=== PATIENT | male | born 1945 | race Caucasian/White ===

== ENCOUNTER 2023-04-02 10:17 | Inpatient (IN) ==
--- NOTE | 2023-04-02 10:45 | Emergency Department Note ---
Impression & Plan Anaplasmosis, Fever, Elevated troponin, Colon cancer, Nausea & vomiting, Hyponatremia, Thrombocytopenia ED Provider Note NAME: SARITHA BRUSH AGE: 77 SEX: M : 1945 ARRIVES VIA: Walk-In INFORMANT: [Patient][, ] ED PROVIDER(S): [Taqueria Graves MD] CHIEF COMPLAINT: Nausea, vomiting, headaches, outpatient referral MEDICAL DECISION MAKING: Patient presents with nausea vomiting headaches and outpatient referral from his primary oncologist due to concern for recent tick bites and associated symptoms. IV was established blood obtained along with blood cultures. The patient was ordered IV fluids and antiemetics. Patient also did have tickborne diseases ordered along with Anaplasma smear. Patient's blood work shows a leukopenia with a white count of 4.3 mild anemia hemoglobin 11.3. Thrombocytopenia noted at 50,000. No spontaneous bleeding noted or easy bruising. Hyponatremia 131. Patient does have prerenal azotemia with a BUN to creatinine ratio of 23. Troponin is slightly elevated at 24 but the patient denies any chest pains or shortness of breath. Urinalysis without obvious signs of infection. Procalcitonin is not elevated. Lyme is negative. Anaplasma smear concerning for Anaplasma. The patient already did receive empiric Rocephin and was ordered p.o. Doxy. Given the patient's associated symptoms I did speak with his primary oncologist Dr. Rand he is in agreement the patient may benefit from inpatient treatment. I did speak with Mabel Gimenez PA-C and the patient was admitted by Dr. Zohaib Will. Prior /Outside records reviewed: [none] Differential diagnosis: Infection, dehydration, metabolic abnormality, hypo/hyperglycemia, electrolyte disturbance, anemia, hypoxia, tickborne illness, among others were considered. Diagnostics, as interpreted by me: ECG: [none] Cardiac monitoring: An order was placed for continuous cardiac monitoring. The monitor shows a rate of [] with [] rhythm. [Patient was placed on pulse oximetry] Medical decision rules: [none] Imaging studies: See below HPI: Patient presents due to concern for weakness fatigue nausea vomiting and headaches. The patient has had symptoms for the last 2 days or so. The patient was noted to have tick bites over the abdomen as well as the right posterior aspect of the thigh. Patient did have these removed but did not receive any treatment. Patient denies any chest pains or shortness of breath. The patient did have some associated vomiting but no blood in the vomit. No falls or trauma. The patient does have increasing weakness and associated fatigue. Patient did receive his chemotherapy for the week. The patient states that he typically will wear a micheal pack with an infusion for the week he went to his follow-up appointment oncology clinic as he does follow with Dr. Rand with [facility] oncology. They removed of the pump this morning but noted that the patient had fever and was given Tylenol and Zofran and referred here for further evaluation and treatment. Patient does complain of mild generalized headache but no numbness tingling or focal weakness. No slurred speech or facial droop PAST MEDICAL HISTORY: [See Below] PAST SURGICAL HISTORY: [See Below] SOCIAL HISTORY: [See Below] HOME MEDICATIONS: [See Below] ALLERGIES: [See Below] VITALS: [See Below] PHYSICAL EXAMINATION: GENERAL: Wearing glasses, fatigable in appearance, nontoxic EYE EXAM: Normal conjunctiva. PERRL, no anisocoria and EOM's grossly intact w/o pain. Oropharynx: Dry mucous membranes NECK: Supple, no nuchal rigidity, no adenopathy, non-tender. No signs of meningismus. FROM of the neck with good chin to chest and neck extension. No stridor. LUNGS: Clear to auscultation. Normal chest wall mechanics. HEART: NSR, no MRG. ABDOMEN: Abdomen soft, 2 small eschars to the left lower abdome without obvious bull's-eye rash n, non-tender, no masses, no rebound or guarding. BACK: No CVA TTP. SKIN: No rashes and no bruising. UPPER EXTREMITIES: Upper extremities are grossly normal. LOWER EXTREMITIES: Grossly normal, no edema. Small eschar noted to the right posterior distal thigh without any erythema migrans NEURO EXAM: A&O x3, cranial nerves II-XII grossly intact, normal speech, moves all 4 extremities. Past Med/Surg History Medical History Aortic calcification Aortic stenosis Asthma Basal cell carcinoma (BCC) of right eyelid Bicuspid aortic valve Colonic polyp Coronary artery calcification Degeneration of cervical intervertebral disc Gastroesophageal reflux disease Glaucoma H/O echocardiogram Hemorrhoids Hepatic steatosis Herpes simplex viral infection Internal carotid artery stenosis Iron deficiency anemia Lateral epicondylitis of elbow Malignant neoplasm of rectum Anorectal exam under anesthesia with biopsy of rectal mass on 01/01/23 Neuropathy Osteoarthritis Pneumonia Prostatitis Rectal mass Rosacea Sepsis Spinal stenosis, cervical region Ulcerative colitis Surgical History H/O aortic valve replacement 12/08/22 History of arthroplasty of left knee History of cataract surgery Bilateral History of ear surgery Create eardrum opening right ear 2015 History of surgery Anal fistula surgery 07/22/2018 History of surgery anorectal exams under anesthesia History of surgery Placement of anal seton on 03/25/18 Hx of colonoscopy Hx of hemorrhoidectomy With banding 1997 S/P tonsillectomy Family History Mother , in her 70s Cancer Pt uncertain of type of cancer; Father , 85yo Sepsis Brother Brain cancer Polio Brother Diabetes Sister Qwjtnvc-Bhgxz-Usigc disease Family/Other Colorectal cancer Niece Son No problems noted. Son No problems noted. 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 [place]; How many Children do You have: 3 Feels Safe at Home: Yes Diet: regular caffeine: Yes (6-8 cups/day) during the past year weight has: remained stable Assistive Devices: Glasses Allergies Allergies Allergy/AdvReac Type Severity Reaction Status Date / Time adhesive tape AdvReac Rash Verified 04/02/23 13:41 celery AdvReac Rash Verified 04/02/23 13:41 triethanolamine AdvReac Difficulty Verified 04/02/23 13:41 Breathing Black Tea Allergy Intermediate Difficulty Uncoded 04/02/23 13:41 Breathing Home Meds Home Medications Medication Instructions Recorded Confirmed albuterol sulfate 90 mcg/actuation 2 puff inhalation QID PRN 09/16/22 04/02/23 aerosol inhaler (ProAir HFA) Shortness Of Breath atorvastatin 20 mg tablet 20 mg PO DAILY 09/16/22 04/02/23 fluticasone propionate 110 2 puff inhalation BID 09/16/22 04/02/23 mcg/actuation HFA aerosol inhaler glucosamine sulf dipot 1 cap PO DAILY ##0 09/16/22 04/02/23 chlr,msm,chond 550 mg-C 30 mg-deshawn 1 mg capsule (Glucosamine Chondroitin) mesalamine 1.2 gram tablet,delayed 3.6 g PO DAILY 09/16/22 04/02/23 release prednisone 5 mg tablet 5 mg PO DAILY 09/16/22 04/02/23 turmeric root extract 500 mg tablet 500 mg PO DAILY 09/16/22 04/02/23 L.acidophil-L.casei-B.bifid-B.longum-FOS 1 cap PO .3 days/week 02/16/23 04/02/23 2 billion cell-50 mg capsule (Probiotic Blend) acetaminophen 325 mg capsule 650 mg PO QID PRN Pain 02/16/23 04/02/23 (Tylenol) aspirin 81 mg capsule 81 mg PO DAILY 02/16/23 04/02/23 borage seed oil 1,000 mg capsule 1,000 mg PO .Twice/week 02/16/23 04/02/23 clotrimazole 1 % topical cream 1 applic topical BID PRN flare 02/16/23 04/02/23 (Antifungal (clotrimazole)) ergocalciferol (vitamin D2) 1,000 1,000 unit PO .3 times/week 02/16/23 04/02/23 unit capsule gabapentin 300 mg tablet 300 mg PO DAILY Pain 02/16/23 04/02/23 indomethacin 25 mg capsule 25 mg PO DAILY 02/16/23 04/02/23 latanoprost 0.005 % eye drops 1 drp ophthalmic (eye) HS 02/16/23 04/02/23 metronidazole 0.75 % topical cream 1 applic topical DAILY 02/16/23 04/02/23 multivitamin 1 tab PO .3 days/week 02/16/23 04/02/23 omeprazole 20 mg capsule,delayed 20 mg PO DAILY PRN Heartburn 02/16/23 04/02/23 release vitamin B12 500 mcg-folic acid 400 1 tab PO .once/week 02/16/23 04/02/23 mcg tablet ondansetron HCl 8 mg tablet 8 mg PO Q8H PRN Nausea 03/08/23 04/02/23 prochlorperazine maleate 10 mg 10 mg PO Q6H PRN Nausea 03/08/23 04/02/23 tablet (Compazine) phenazopyridine 95 mg tablet (Azo 95 mg PO TID PRN Pain 03/29/23 04/02/23 Urinary Pain Relief) Previous Rx's Medication Instructions Recorded tamsulosin 0.4 mg capsule 0.4 mg PO .COMPLEX #30 caps 03/29/23 Results & Data (ED) Vital Signs Vital Signs - 24 hr 04/02/23 10:32 04/02/23 10:50 04/02/23 12:14 Temperature 36.6 C Temperature Source Temporal Artery Scan Pulse Rate 83 73 Pulse Rate [Apical] 76 Pulse Rhythm Regular Regular Pulse Strength Normal Respiratory Rate 20 24 16 Respiratory Effort / Characteristics Non-Labored Spontaneous Non-Labored Respiratory Depth Normal Normal Respiratory Pattern Regular Blood Pressure 105/62 Blood Pressure [Right Arm] 114/50 L Blood Pressure Mean 76 Blood Pressure Mean [Right Arm] 71 Blood Pressure Position Sitting Pulse Oximetry 94 94 97 Oxygen Delivery Method Room Air Room Air Room Air Sepsis Recent Fever Within 48 Hours Yes Sepsis New/Unexplained Change in Mental Status No Sepsis Action Taken by Nursing No Action Required 04/02/23 12:14 04/02/23 14:37 Temperature 37.0 C Temperature Source Oral Pulse Rate Pulse Rate [Apical] 70 Pulse Rhythm Pulse Strength Respiratory Rate 20 Respiratory Effort / Characteristics Non-Labored Respiratory Depth Normal Respiratory Pattern Blood Pressure Blood Pressure [Right Arm] 112/63 Blood Pressure Mean Blood Pressure Mean [Right Arm] 79 Blood Pressure Position Pulse Oximetry 97 Oxygen Delivery Method Room Air Sepsis Recent Fever Within 48 Hours Sepsis New/Unexplained Change in Mental Status Sepsis Action Taken by [facility] Medications Current Medication List: was personally reviewed by me Laboratory Data Attestation: I reviewed the patient's lab results. 04/03/23 03:34 04/03/23 03:34 Lab Results 04/02/23 04/02/23 04/02/23 Range/Units 11:48 11:48 11:48 WBC 4.31 L (4.8-10.8) K/ul RBC 3.59 L (4.70-6.10) M/uL Hgb 11.3 L (14.0-18.0) g/dl Hct 32.9 L (42.0-52.0) % MCV 91.6 (80.0-100.0) fL MCH 31.5 (25.0-34.0) pg MCHC 34.3 (32.0-36.0) g/dL RDW Std Deviation 52.5 H (36.4-46.3) fL RDW Coeff of Lucy 16.5 H (11.5-14.5) % Plt Count 50 L (130-400) K/uL MPV 10.3 (9.4-12.4) fL Immature Gran % (Auto) 2.1 % Neut % (Auto) 88.4 % Lymph % (Auto) 2.6 % [place] % (Auto) 6.7 % Eos % (Auto) 0.0 % Baso % (Auto) 0.2 % Neut # (Auto) 3.81 (1.40-6.50) K/uL Lymph # (Auto) 0.11 L (1.2-3.4) K/uL Webster # (Auto) 0.29 (0.11-0.59) K/uL Eos # (Auto) 0.00 (0-0.50) K/uL Baso # (Auto) 0.01 (0-0.2) K/uL Immature Gran # (Auto) 0.09 (0.01-0.20) K/uL Platelet Estimate Decreased L (Normal) Peripher Smr Path Cons Sodium 131 L (136-145) mmol/L Potassium 3.8 (3.5-5.1) mmol/L Chloride 102 (98-107) mmol/L Carbon Dioxide 24 (21-32) mmol/L Anion Gap 5 (3-11) BUN 21 (6-23) mg/dl Creatinine 0.89 (0.6-1.4) mg/dl Est Cr Clr Drug Dosing 79.1 ml/min Est GFR ( Amer) 94.9 ml/min Est GFR (Non-Af Amer) 81.9 ml/min BUN/Creatinine Ratio 23.6 H (10-20) Glucose 115 H (70-99(Fasting)) mg/dl Lactate 0.9 (0.4-2.0) mmol/L Calcium 8.1 L (8.6-10.3) mg/dl Magnesium 1.8 (1.7-2.4) mg/dl Total Bilirubin 1.1 H (0.2-1.0) mg/dl Direct Bilirubin 0.2 (0-0.2) mg/dl AST 18 (13-39) U/L ALT 12 (7-52) U/L Alkaline Phosphatase 67 (34-104) U/L Troponin I High Sens 24.6 H (0-20) pg/ml Total Protein 5.8 L (6.0-8.3) gm/dl Albumin 3.5 (3.4-5.0) gm/dl Procalcitonin (0-0.5) ng/ml Urine Color Urine Appearance (Clear) Urine pH (4.5-7.5) Ur Specific [place] (1.000-1.030) Urine Protein (Negative) Urine Glucose (UA) (Negative) Urine Ketones (Negative) Urine Blood (Negative) Urine Nitrite (Negative) Urine Bilirubin (Negative) Urine Urobilinogen (Negative) Ur Leukocyte Esterase (Negative) Urine WBC (Auto) (0-5) /hpf Urine RBC (Auto) (0-4) /hpf U Hyaline Cast (Auto) (0-5) /lpf U Epithel Cells (Auto) (0-5) /lpf Urine Bacteria (Auto) (Negative) Anaplasma Smear Lyme Disease IgG Ab (Negative) Lyme Disease IgM Ab (Negative) 04/02/23 04/02/23 04/02/23 Range/Units 11:48 11:48 14:25 WBC (4.8-10.8) K/ul RBC (4.70-6.10) M/uL Hgb (14.0-18.0) g/dl Hct (42.0-52.0) % MCV (80.0-100.0) fL MCH (25.0-34.0) pg MCHC (32.0-36.0) g/dL RDW Std Deviation (36.4-46.3) fL RDW Coeff of Lucy (11.5-14.5) % Plt Count (130-400) K/uL MPV (9.4-12.4) fL Immature Gran % (Auto) % Neut % (Auto) % Lymph % (Auto) % [place] % (Auto) % Eos % (Auto) % Baso % (Auto) % Neut # (Auto) (1.40-6.50) K/uL Lymph # (Auto) (1.2-3.4) K/uL Webster # (Auto) (0.11-0.59) K/uL Eos # (Auto) (0-0.50) K/uL Baso # (Auto) (0-0.2) K/uL Immature Gran # (Auto) (0.01-0.20) K/uL Platelet Estimate (Normal) Peripher Smr Path Cons Sodium (136-145) mmol/L Potassium (3.5-5.1) mmol/L Chloride (98-107) mmol/L Carbon Dioxide (21-32) mmol/L Anion Gap (3-11) BUN (6-23) mg/dl Creatinine (0.6-1.4) mg/dl Est Cr Clr Drug Dosing ml/min Est GFR ( Amer) ml/min Est GFR (Non-Af Amer) ml/min BUN/Creatinine Ratio (10-20) Glucose (70-99(Fasting)) mg/dl Lactate (0.4-2.0) mmol/L Calcium (8.6-10.3) mg/dl Magnesium (1.7-2.4) mg/dl Total Bilirubin (0.2-1.0) mg/dl Direct Bilirubin (0-0.2) mg/dl AST (13-39) U/L ALT (7-52) U/L Alkaline Phosphatase (34-104) U/L Troponin I High Sens (0-20) pg/ml Total Protein (6.0-8.3) gm/dl Albumin (3.4-5.0) gm/dl Procalcitonin 0.34 (0-0.5) ng/ml Urine Color Dark Yellow Urine Appearance Clear (Clear) Urine pH 5.5 (4.5-7.5) Ur Specific [place] 1.030 (1.000-1.030) Urine Protein 1+ H (Negative) Urine Glucose (UA) Negative (Negative) Urine Ketones 1+ H (Negative) Urine Blood 1+ H (Negative) Urine Nitrite Negative (Negative) Urine Bilirubin Negative (Negative) Urine Urobilinogen Negative (Negative) Ur Leukocyte Esterase Negative (Negative) Urine WBC (Auto) 1-5 (0-5) /hpf Urine RBC (Auto) 10-30 H (0-4) /hpf U Hyaline Cast (Auto) 1-5 (0-5) /lpf U Epithel Cells (Auto) 10-20 H (0-5) /lpf Urine Bacteria (Auto) Negative (Negative) Anaplasma Smear Lyme Disease IgG Ab Negative (Negative) Lyme Disease IgM Ab Negative (Negative) 04/02/23 04/02/23 Range/Units 15:00 15:00 WBC (4.8-10.8) K/ul RBC (4.70-6.10) M/uL Hgb (14.0-18.0) g/dl Hct (42.0-52.0) % MCV (80.0-100.0) fL MCH (25.0-34.0) pg MCHC (32.0-36.0) g/dL RDW Std Deviation (36.4-46.3) fL RDW Coeff of Lucy (11.5-14.5) % Plt Count (130-400) K/uL MPV (9.4-12.4) fL Immature Gran % (Auto) % Neut % (Auto) % Lymph % (Auto) % [place] % (Auto) % Eos % (Auto) % Baso % (Auto) % Neut # (Auto) (1.40-6.50) K/uL Lymph # (Auto) (1.2-3.4) K/uL [place] # (Auto) (0.11-0.59) K/uL Eos # (Auto) (0-0.50) K/uL Baso # (Auto) (0-0.2) K/uL Immature Gran # (Auto) (0.01-0.20) K/uL Platelet Estimate (Normal) Peripher Smr Path Cons Cancelled Sodium (136-145) mmol/L Potassium (3.5-5.1) mmol/L Chloride (98-107) mmol/L Carbon Dioxide (21-32) mmol/L Anion Gap (3-11) BUN (6-23) mg/dl Creatinine (0.6-1.4) mg/dl Est Cr Clr Drug Dosing ml/min Est GFR ( Amer) ml/min Est GFR (Non-Af Amer) ml/min BUN/Creatinine Ratio (10-20) Glucose (70-99(Fasting)) mg/dl Lactate (0.4-2.0) mmol/L Calcium (8.6-10.3) mg/dl Magnesium (1.7-2.4) mg/dl Total Bilirubin (0.2-1.0) mg/dl Direct Bilirubin (0-0.2) mg/dl AST (13-39) U/L ALT (7-52) U/L Alkaline Phosphatase (34-104) U/L Troponin I High Sens (0-20) pg/ml Total Protein (6.0-8.3) gm/dl Albumin (3.4-5.0) gm/dl Procalcitonin (0-0.5) ng/ml Urine Color Urine Appearance (Clear) Urine pH (4.5-7.5) Ur Specific [place] (1.000-1.030) Urine Protein (Negative) Urine Glucose (UA) (Negative) Urine Ketones (Negative) Urine Blood (Negative) Urine Nitrite (Negative) Urine Bilirubin (Negative) Urine Urobilinogen (Negative) Ur Leukocyte Esterase (Negative) Urine WBC (Auto) (0-5) /hpf Urine RBC (Auto) (0-4) /hpf U Hyaline Cast (Auto) (0-5) /lpf U Epithel Cells (Auto) (0-5) /lpf Urine Bacteria (Auto) (Negative) Anaplasma Smear See Comment A Lyme Disease IgG Ab (Negative) Lyme Disease IgM Ab (Negative) Administered Medications Albuterol (Albuterol 0.083% Nebu Soln 3 Ml Vial) 2.5 mg NEB Q6R PRN; Protocol PRN Reason: Shortness Of Breath Or Wheezing Stop: 05/02/23 19:12 Last Admin: 04/02/23 23:05 Dose: 2.5 mg Documented By: MAGDA Aspirin (Aspirin 81 Mg Ectab) 81 mg PO DAILY [facility] Stop: 05/03/23 08:59 Last Admin: 04/03/23 08:14 Dose: 81 mg Documented By: JULIANNA Atorvastatin Calcium (Atorvastatin 20 Mg Tab) 20 mg PO DAILY [facility] Stop: 05/03/23 08:59 Last Admin: 04/03/23 08:14 Dose: 20 mg Documented By: JULIANNA Ceftriaxone Sodium 2,000 mg/ (Dextrose) 70 mls @ 100 mls/hr IV Q24H [facility]; Protocol Stop: 04/04/23 19:29 Last Infusion: 04/02/23 22:42 Dose: 0 mls/hr Documented By: Admin: 04/02/23 21:28 Dose: 100 mls/hr Documented By: MAGDA Doxycycline Hyclate 100 mg/ (Dextrose) 110 mls @ 50 mls/hr IV Q12H GURU Stop: 04/04/23 19:29 Last Admin: 04/03/23 07:40 Dose: 50 mls/hr Documented By: Infusion: 04/03/23 02:01 Dose: 0 mls/hr Documented By: Admin: 04/02/23 23:07 Dose: 50 mls/hr Documented By: MAGDA Sodium Chloride (Nss 1000ml) 1,000 mls @ 80 mls/hr IV .[id number] [facility] Stop: 04/03/23 20:12 Last Admin: 04/02/23 21:28 Dose: 80 mls/hr Documented By: MAGDA Latanoprost (Latanoprost 0.005% Op Soln 2.5 Ml Btl) 1 drops OP HS GURU Stop: 05/02/23 20:59 Last Admin: 04/02/23 21:29 Dose: 1 drops Documented By: MAGDA Pantoprazole Sodium (Pantoprazole 40 Mg Tab) 40 mg PO DAILY GURU Stop: 05/03/23 08:59 Last Admin: 04/03/23 08:14 Dose: 40 mg Documented By: JULIANNA Prednisone (Prednisone 5 Mg Tab) 5 mg PO DAILY GURU Stop: 05/03/23 08:59 Last Admin: 04/03/23 08:14 Dose: 5 mg Documented By: JULIANNA Tamsulosin HCl (Tamsulosin Hcl 0.4 Mg Cap) 0.4 mg PO DAILY@1800 [facility] Stop: 05/02/23 19:29 Last Admin: 04/02/23 21:28 Dose: 0.4 mg Documented By: MAGDA Discontinued Medications Doxycycline Hyclate (Doxycycline Hyclate 100 Mg Cap) 100 mg PO NOW STA Stop: 04/02/23 14:24 Last Admin: 04/02/23 14:39 Dose: 100 mg Documented By: MALACHI Cefepime HCl (Maxipime) 2,000 mg in 20 mls @ 5 mls/min IV NOW STA; Protocol Stop: 04/02/23 11:07 Last Admin: 04/02/23 12:12 Dose: 5 mls/min Documented By: MALACHI Sodium Chloride (Nss 1000ml) 1,000 mls @ 999 mls/hr IV .Q1H1M GURU Stop: 04/02/23 13:15 Last Infusion: 04/02/23 13:49 Dose: 0 mls/hr Documented By: Admin: 04/02/23 13:05 Dose: 999 mls/hr Documented By: Infusion: 04/02/23 13:05 Dose: 0 mls/hr Documented By: Admin: 04/02/23 12:13 Dose: 999 mls/hr Documented By: MALACHI Calcium Gluconate () 1,000 mg in 60 mls @ 240 mls/hr IV NOW STA Stop: 04/02/23 13:31 Last Infusion: 04/02/23 14:09 Dose: 0 mls/hr Documented By: Admin: 04/02/23 13:44 Dose: 240 mls/hr Documented By: FREDY Ioversol (Optiray 320 500ml) 120 ml IV ONCE ONE Stop: 04/02/23 15:57 Last Admin: 04/02/23 15:57 Dose: 120 ml Documented By: KATHLEEN Ondansetron HCl (Ondansetron Inj 2 Mg/Ml 2 Ml Vial) Confirm Administered Dose 4 mg .ROUTE .STK-MED ONE Stop: 04/02/23 17:30 Last Admin: 04/02/23 17:31 Dose: 4 mg Documented By: TW Discharge Plan Visit Data Chief Complaint: Bite Stated Complaint: TICK BITE ED Provider: Taqueria Graves Discharge Problem: Anaplasmosis, Fever, Elevated troponin, Colon cancer, Nausea & vomiting, H yponatremia, Thrombocytopenia Patient Disposition: Admitted As Inpatient Discharge Instructions Interventions: ED Discharge Assessment Last Done: 04/02/23 19:13
[2023-04-02] MEDS ORDERED: CEFEPIME 2,000 MG/20 ML VIAL IV STA (11:04)
--- NOTE | 2023-04-02 11:52 | XRay Report ---
XR chest 1V portable HISTORY: Sepsis COMPARISON: Outside hospital chest CT 02/17/2023. FINDINGS: No pneumothorax. No pleural effusions. A right jugular central venous catheter terminates i n the SVC. The cardiac silhouette is top normal in size. There are bibasilar linear densities. This f avors subsegmental atelectasis or scarring. Calcified granuloma within the left upper lobe. No eviden ce for pulmonary edema. IMPRESSION: Bibasilar linear densities are nonspecific but favor subsegmental atelectasis or scarring. Otherwise, no acute process within the chest. ACT 112: Negative or not required by law. Electronically signed by: Ascencion Cordova M.D. 04/02/2023 11:51 AM
[2023-04-02] MEDS: SODIUM CHLORIDE 0.9% 1000ML 1,000 ML IV SCH ×3 (12:13→21:28)
[2023-04-02 12:29] LABS: Albumin Level 3.5 gm/dl (3.4-5.0); BUN Creatinine Ratio 23.6 (10-20); Bilirubin Direct 0.2 mg/dl (0-0.2); Bilirubin,Total 1.1 mg/dl (0.2-1.0); Calcium 8.1 mg/dl (8.6-10.3); Creatinine Clr Calc Pharmacy 79.1 ml/min; Est GFR (African American) 94.9 ml/min; Est GFR (Non-African American) 81.9 ml/min; Magnesium 1.8 mg/dl (1.7-2.4); Potassium 3.8 mmol/L (3.5-5.1); Total Protein 5.8 gm/dl (6.0-8.3)
[2023-04-02 12:34] LABS: Troponin I High Sensitivity 24.6 pg/ml (0-20)
[2023-04-02 12:45] LABS: Basophils # (auto) 0.01 K/uL (0-0.2); Basophils % (auto) 0.2 %; Hematocrit (blood only) 32.9 % (42.0-52.0); Hemoglobin 11.3 g/dl (14.0-18.0); Immature Granulocytes # (auto) 0.09 K/uL (0.01-0.20); Immature Granulocytes % (auto) 2.1 %; Lymphocytes # (auto) 0.11 K/uL (1.2-3.4); Lymphocytes % (auto) 2.6 %; Mean Corpuscular Hemoglobin 31.5 pg (25.0-34.0); Mean Corpuscular Hgb Conc 34.3 g/dL (32.0-36.0); Mean Corpuscular Volume 91.6 fL (80.0-100.0); Mean Platelet Volume 10.3 fL (9.4-12.4); Monocytes # (auto) 0.29 K/uL (0.11-0.59); Monocytes % (auto) 6.7 %; Neutrophils # (auto) 3.81 K/uL (1.40-6.50); Neutrophils % (auto) 88.4 %; Platelet Count 50 K/uL (130-400); Platelet Estimate Decreased (Normal); RDW Coefficient of Variation 16.5 % (11.5-14.5); RDW Standard Deviation 52.5 fL (36.4-46.3); Red Blood Count 3.59 M/uL (4.70-6.10); White Blood Count 4.31 K/ul (4.8-10.8)
[2023-04-02 13:13] LABS: Lyme Ab IgG w/WB Rflx Negative (Negative); Lyme Ab IgM w/WB Rflx Negative (Negative)
[2023-04-02] MEDS ORDERED: CALCIUM GLUCONATE 1,000 MG/60 ML BAG IV STA (13:17)
[2023-04-02] MEDS ORDERED: DOXYCYCLINE HYCLATE 100 MG CAP PO STA (14:23)
--- NOTE | 2023-04-02 14:57 | History & Physical Report ---
Date of Service April 02, 2023 Assessment & Plan (1) Fever: (2) Anaplasmosis: Plan: Thrombocytopenia Patient is 77-year-old male with PMH rectal adenocarcinoma, bladder tumor, asthma, ulcerative colitis, iron deficiency anemia, presented to ER with complaint of fever x 1 day up to 103F. Tick bite 1 week ago In ER vitals stable. WBC: 4.3, PLT: 50. 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 (3) Elevated troponin: Plan: Initial high-sensitivity troponin: 24.6. EKG: Sinus rhythm rate 78, PVCs, LBBB. Patient with history of chronic LBBB per outpatient prior EKGs Possible demand ischemia Trend troponin Echo (4) Colon cancer: Plan: Currently receiving chemo Following with oncology, Dr. Rand (5) Asthma: Plan: On chronic prednisone, continue prednisone Continue home medicines Albuterol as needed (6) Ulcerative colitis: Plan: Continue mesalamine (7) Iron deficiency anemia: Plan: Last received IV iron 03/19/2023 Hgb: 11. Baseline~12 Monitor H&H DVT Prophylaxis SCDs DNR/DNI as per discussion with pt and pt's signficant other Follows with Dr Valdez for routine care Pt was seen and care coordinated with Dr Alcaraz. See addendum I spent a total of 83 minutes reviewing notes, outpatient records, labs, medication, coordinating, documenting and providing care for this patient excluding time spent in the performance of separately billed services. History of Present Illness Chief Complaint: Fever Primary Care Provider: Baldo Valdez MD Patient is 77-year-old male with PMH rectal adenocarcinoma, bladder tumor, asthma, ulcerative colitis, iron deficiency anemia, presented to ER with complaint of fever. History obtained from patient, patient's and chart review. States had fever 101.5F last night, took Tylenol and went to bed. This morning had Fever 103F. Currently on chemotherapy. Nauseated and vomited today after drinking Coke in ER. Patient states thinks abdomen is more distended and has diffuse abdominal aching. Reports 1 week ago had 2 ticks to abdomen and one tick to right popliteal fossa. removed with tweezers. states ticks on abdomen were engorged. Patient complains of generalized headache and fatigue and generalized weakness for the past day as well. Patient states has chronic dysuria and uses OTC Azo. Last received IV iron 02/23/2023, 03/19/2023. Denies diarrhea, constipation, dizziness, syncope, vision changes, neck pain, CP, SOB, palpitations, cough, sore throat, otalgia, rhinorrhea, extremity edema, rashes, hematuria, urinary frequency. Allergies Allergy/AdvReac Type Severity Reaction Status Date / Time adhesive tape AdvReac Rash Verified 04/02/23 13:41 celery AdvReac Rash Verified 04/02/23 13:41 triethanolamine AdvReac Difficulty Verified 04/02/23 13:41 Breathing Black Tea Allergy Intermediate Difficulty Uncoded 04/02/23 13:41 Breathing Home Medications Medication Instructions Recorded Confirmed Type albuterol sulfate 90 mcg/actuation 2 puff inhalation QID PRN 09/16/22 04/02/23 History aerosol inhaler (ProAir HFA) Shortness Of Breath atorvastatin 20 mg tablet 20 mg PO DAILY 09/16/22 04/02/23 History fluticasone propionate 110 2 puff inhalation BID 09/16/22 04/02/23 History mcg/actuation HFA aerosol inhaler glucosamine sulf dipot 1 cap PO DAILY ##0 09/16/22 04/02/23 History chlr,msm,chond 550 mg-C 30 mg-deshawn 1 mg capsule (Glucosamine Chondroitin) mesalamine 1.2 gram tablet,delayed 3.6 g PO DAILY 09/16/22 04/02/23 History release prednisone 5 mg tablet 5 mg PO DAILY 09/16/22 04/02/23 History turmeric root extract 500 mg tablet 500 mg PO DAILY 09/16/22 04/02/23 History L.acidophil-L.casei-B.bifid-B.longum-FOS 1 cap PO .3 days/week 02/16/23 04/02/23 History 2 billion cell-50 mg capsule (Probiotic Blend) acetaminophen 325 mg capsule 650 mg PO QID PRN Pain 02/16/23 04/02/23 History (Tylenol) aspirin 81 mg capsule 81 mg PO DAILY 02/16/23 04/02/23 History borage seed oil 1,000 mg capsule 1,000 mg PO .Twice/week 02/16/23 04/02/23 History clotrimazole 1 % topical cream 1 applic topical BID PRN flare 02/16/23 04/02/23 History (Antifungal (clotrimazole)) ergocalciferol (vitamin D2) 1,000 1,000 unit PO .3 times/week 02/16/23 04/02/23 History unit capsule gabapentin 300 mg tablet 300 mg PO DAILY Pain 02/16/23 04/02/23 History indomethacin 25 mg capsule 25 mg PO DAILY 02/16/23 04/02/23 History latanoprost 0.005 % eye drops 1 drp ophthalmic (eye) HS 02/16/23 04/02/23 History metronidazole 0.75 % topical cream 1 applic topical DAILY 02/16/23 04/02/23 History multivitamin 1 tab PO .3 days/week 02/16/23 04/02/23 History omeprazole 20 mg capsule,delayed 20 mg PO DAILY PRN Heartburn 02/16/23 04/02/23 History release vitamin B12 500 mcg-folic acid 400 1 tab PO .once/week 02/16/23 04/02/23 History mcg tablet ondansetron HCl 8 mg tablet 8 mg PO Q8H PRN Nausea 03/08/23 04/02/23 History prochlorperazine maleate 10 mg 10 mg PO Q6H PRN Nausea 03/08/23 04/02/23 History tablet (Compazine) phenazopyridine 95 mg tablet (Azo 95 mg PO TID PRN Pain 03/29/23 04/02/23 History Urinary Pain Relief) tamsulosin 0.4 mg capsule 0.4 mg PO .COMPLEX #30 caps 03/29/23 04/02/23 Rx Past Med/Surg History Medical History (Updated 04/02/23 @ 20:24 by Taina Gimenez PA-C) Aortic calcification Aortic stenosis Asthma Basal cell carcinoma (BCC) of right eyelid Bicuspid aortic valve Colonic polyp Coronary artery calcification Degeneration of cervical intervertebral disc Gastroesophageal reflux disease Glaucoma H/O echocardiogram Hemorrhoids Hepatic steatosis Herpes simplex viral infection Internal carotid artery stenosis Iron deficiency anemia Lateral epicondylitis of elbow Malignant neoplasm of rectum Anorectal exam under anesthesia with biopsy of rectal mass on 01/01/23 Neuropathy Osteoarthritis Pneumonia Prostatitis Rectal mass Rosacea Sepsis Spinal stenosis, cervical region Ulcerative colitis Surgical History H/O aortic valve replacement 12/08/22 History of arthroplasty of left knee History of cataract surgery Bilateral History of ear surgery Create eardrum opening right ear 2015 History of surgery Anal fistula surgery 07/22/2018 History of surgery anorectal exams under anesthesia History of surgery Placement of anal seton on 03/25/18 Hx of colonoscopy Hx of hemorrhoidectomy With banding 1997 S/P tonsillectomy Family History Mother , in her 70s Cancer Pt uncertain of type of cancer; Father , 85yo Sepsis Brother Brain cancer Polio Brother Diabetes Sister Xlilofc-Hqjsb-Lqxek disease Family/Other Colorectal cancer Niece Son No problems noted. Son No problems noted. 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 [place]; How many Children do You have: 3 Feels Safe at Home: Yes Diet: regular caffeine: Yes (6-8 cups/day) during the past year weight has: remained stable Assistive Devices: Glasses Review of Systems Review of Systems: All systems reviewed & are unremarkable except as noted in HPI & below Physical Exam Physical Exam: General:+ill appearing, obese elderly male Head: normocephalic, atraumatic Eyes: PERRL, EOM's intact, conjunctiva non-injected, anicteric ENT: normal inspection external ears, nose, mucous membranes dry Neck: supple, trachea midline Lungs: +tachypnea, sats: 96% on RA, clear, no wheezing/rhonchi/rales CV: RRR, no murmur, no pretibial edema Abd: protuberant, normal BS, soft, diffuse tenderness to palpation Ext: no cyanosis, no calf tenderness Neuro: A&O x 3, no focal deficits noted, normal affect Skin: warm, dry, +scabbed area to right popliteal fossa without surrounding erythema. lower abdomen with ulcerated area. no discharge. no bulls eye rashes noted Results & Data Results & Data Vital Signs (Past 12 Hours) Vital Signs Temp Pulse Pulse Resp BP BP Pulse Ox 04/02/23 14:37 37.0 C 04/02/23 12:14 70 20 112/63 97 04/02/23 12:14 73 16 97 04/02/23 10:50 76 24 114/50 L 94 04/02/23 10:32 36.6 C 83 20 105/62 94 O2 Del Method 04/02/23 14:37 04/02/23 12:14 Room Air 04/02/23 12:14 Room Air 04/02/23 10:50 Room Air 04/02/23 10:32 Room Air Laboratory Results Short CBC 04/02/23 Range/Units 11:48 WBC 4.31 L (4.8-10.8) K/ul Hgb 11.3 L (14.0-18.0) g/dl Hct 32.9 L (42.0-52.0) % Plt Count 50 L (130-400) K/uL BMP 04/02/23 11:48 Sodium 131 L Potassium 3.8 Chloride 102 Carbon Dioxide 24 BUN 21 Creatinine 0.89 Glucose 115 H Calcium 8.1 L Liver Function 04/02/23 Range/Units 11:48 Total Bilirubin 1.1 H (0.2-1.0) mg/dl Direct Bilirubin 0.2 (0-0.2) mg/dl AST 18 (13-39) U/L ALT 12 (7-52) U/L Alkaline Phosphatase 67 (34-104) U/L Albumin 3.5 (3.4-5.0) gm/dl Urine 04/02/23 Range/Units 14:25 Urine Color Dark Yellow Urine Appearance Clear (Clear) Urine pH 5.5 (4.5-7.5) Ur Specific [place] 1.030 (1.000-1.030) Urine Protein 1+ H (Negative) Urine Glucose (UA) Negative (Negative) Diagnostic Findings Chest X-Ray 04/02/23 11:04 XR chest 1V portable HISTORY: Sepsis COMPARISON: Outside hospital chest CT 02/17/2023. FINDINGS: No pneumothorax. No pleural effusions. A right jugular central venous catheter terminates in the SVC. The cardiac silhouette is top normal in size. There are bibasilar linear densities. This favors subsegmental atelectasis or scarring. Calcified granuloma within the left upper lobe. No evidence for pulmonary edema. IMPRESSION: Bibasilar linear densities are nonspecific but favor subsegmental atelectasis or scarring. Otherwise, no acute process within the chest. ACT 112: Negative or not required by law. Electronically signed by: Ascencion Cordova M.D. 04/02/2023 11:51 AM Abdomen/Pelvis CT 04/02/23 15:48 CT OF THE ABDOMEN AND PELVIS WITH CONTRAST CLINICAL HISTORY: Abdominal pain. Rectal adenocarcinoma. COMPARISON STUDY: CT of the chest, abdomen and pelvis February 17, 2023. TECHNIQUE: Following IV administration of 120 mL of Optiray, axial images of the abdomen and pelvis were obtained from the lung bases to the proximal femurs. Images were reviewed in the axial, sagittal, and coronal planes. IV contrast was administered without complication. Automated exposure control was utilized for the study. A dose lowering technique was utilized adhering to the principles of ALARA. FINDINGS: Please note that the chest CT will be reported separately. No pneumatosis, free air or portal venous gas is present. There are a few in determinate small hypodense hepatic lesions which measure up to 1.1 cm. There is no biliary or pancreatic ductal dilatation. Spleen, adrenal glands and pancreas are unremarkable. A few suspected renal cysts are present. There is no hydronephrosis. No abdominal or pelvic lymphadenopathy is present. The caliber and wall thickness of small and large bowel are normal. There is no evidence for a bowel obstruction. The appendix is not visualized. Note is made of a large multiloculated cystic mass along the left aspect of the rectum and anus. The largest component measures 11.1 x 8.1 x 9.3 cm. The wall is mildly thickened and contains several calcifications. Complex perianal component is present. The appearance is similar to CT of February 17, 2023. There is mild bladder wall thickening with adjacent stranding. Prostate is enlarged, measuring 6.2 cm in transverse dimension. No suspicious osseous lesions are present. IMPRESSION: 1. Bladder wall thickening with adjacent stranding. This could be correlated with urinalysis to exclude cystitis. Enlarged prostate. 2. No bowel obstruction. 3. No change in a multiloculated cystic mass along the left aspect of the rectum and anus with complex perianal component, since CT of February 17, 2023. This likely reflects the known primary tumor. 4. A few small indeterminate hypodense hepatic lesions. ACT 112: Negative or not required by law. Electronically signed by: Nam Mckeon M.D. 04/02/2023 4:27 PM Chest CTA 04/02/23 15:48 CT angio chest PE protocol CT DOSE: 1915.66 mGy.cm HISTORY: 77 years-old Male with PE. Acute chest and abdominal pain TECHNIQUE: Multiple CTA images of the chest were obtained after the intravenous administration of 120 ml Optiray. Coronal and sagittal MIPS were obtained from the axial data set and were submitted for review. All measurements were obtained according to NASCET criteria. A dose lowering technique was utilized adhering to the principles of ALARA. COMPARISON: CT abdomen and pelvis of same day, CTA 02/17/2023 (images only). FINDINGS: CTA: Heart is normal in size without pericardial effusion. Moderate to extensive coronary artery calcifications. Descending aortic endograft. No thoracic aortic aneurysm or dissection. Right IJ Ngmeth-p-Cgds catheter distal tip terminates within the right atrium. No pulmonary emboli identified. CT CHEST: No thyroid nodule. Mildly enlarged right hilar lymph nodes measure up to 12 mm. Subcarinal lymph nodes measure up to 9 mm. Trace pleural effusions. No pneumothorax or overt pulmonary edema. Bronchial wall thickening with mild mucous plugging and subsegmental bibasilar atelectasis. Mild pulmonary emphysema. 6 mm groundglass nodule of the left upper lobe on image 146 is unchanged. Mild biapical pleural-parenchymal scarring. 7 mm fissural nodule left mid lung on image 111 is suggestive of a benign lymph node. Lobular septal thickening. No acute process of the imaged upper abdomen. Unremarkable soft tissues. No acute fracture. IMPRESSION: 1. No pulmonary emboli identified. 2. Trace pleural effusions with mild bibasilar atelectasis. 3. Pulmonary emphysema with bronchitis and mild mucous plugging. 4. Intralobular septal thickening may represent a component of pulmonary edema. 5. Unchanged 6 mm irregular groundglass nodule of the lateral upper lobe with likely benign 7 mm fissural nodule within the left midlung. Please refer to below summary of Fleischner criteria recommendations for follow- up of incidental CT nodules (Stephani Barker, Guidelines for management of small pulmonary nodules detected on CT scans: A statement from the Fleischner Society, Radiology 237: [phone].) SOLID NODULES Solitary nodule size: <6 mm * Low risk patients: no follow-up needed * high risk patients: optional CT at 12 months Solitary nodule size: 6-8 mm * Low risk patients: follow-up at 6-12 months, then consider further follow-up at 18-24 months * high risk patients: initial follow-up CT at 6-12 months and then at 18-24 months if no change Solitary nodule size: >8 mm * either low or high risk patients - consider follow-up CT at 3 months, and/or CT-PET, and/or biopsy Multiple nodules size: <6 mm * Low risk patients: no routine follow-up * high risk patients: optional CT at 12 months Multiple nodules size: 6-8 mm * Low risk patients: follow-up at 3-6 months, then consider further follow-up at 18-24 months * high risk patients: follow-up at 3-6 months, then at 18-24 months if no change Multiple nodules size: >8 mm * Low risk patients: follow-up at 3-6 months, then consider further follow-up at 18-24 months * high risk patients: follow-up at 3-6 months, then at 18-24 months if no change Note: newly detected indeterminate nodule in persons 35 years of age or older. * Low risk patients: minimal or absent history of smoking and/or other known risk factors * high risk patients: history of smoking or of other known risk factors (e.g. first degree relative with lung cancer, or exposure to asbestos, radon, uranium) * if a nodule up to 8 mm is partly solid or is ground glass further follow-up is required after 24 months to exclude possible slow growing adenocarcinoma (ASLVATORE) SUBSOLID NODULES Solitary pure ground-glass nodule * nodule size <6 mm - no CT follow-up required * nodule size >=6 mm - follow-up CT at 6-12 months, then every 2 years until 5 years Solitary part-solid nodule * nodule size <6 mm - no CT follow-up required * nodule size >=6 mm - follow-up CT at 3-6 months. If unchanged, and solid component remains <6 mm, then annual follow-up for 5 years Multiple subsolid nodules * nodule size <6 mm - follow-up CT at 3-6 months, consider further follow-up at 2 and 4 years if stable * nodule size >=6 mm - follow-up CT at 3-6 months, subsequent management based on the most suspicious nodule(s) The above report was generated using voice recognition software. It may contain grammatical, syntax or spelling errors. ACT 112: Negative or not required by law. The above report was generated using voice recognition software. It may contain grammatical, syntax or spelling errors. Electronically signed by: Sven Reyes M.D. 04/02/2023 4:14 PM Supervising Physician Co-Signing Physician Notes Patient seen and examined independently. Discussed with the provider. 77-year-old male with history of rectal cancer, bladder tumor presents to the ED with generalized weakness and fever. He was sent to ED from oncology office for concern of anaplasmosis given thrombocytopenia. Peripheral smear consistent with possible anaplasmosis. Currently started on ceftriaxone and Doxy. Can switch to doxycycline alone if patient continues to well; plan for 10 days of treatment.
[2023-04-02 15:04] LABS: Appearance Urine Clear (Clear); Bacteria Urine Automated Negative (Negative); Bilirubin Urine Negative (Negative); Blood Urine 1+ (Negative); Color Urine Dark Yellow; Glucose Urine UA Negative (Negative); Ketones Urine 1+ (Negative); Leukocyte Esterase Urine Negative (Negative); Nitrite Urine Negative (Negative); Protein Urine 1+ (Negative); Urobilinogen Urine Negative (Negative); pH Urine 5.5 (4.5-7.5)
--- NOTE | 2023-04-02 15:35 | Electrocardiogram Report ---
Test Reason : Blood Pressure : / mmHG Vent. Rate : 078 BPM Atrial Rate : 078 BPM P-R Int : 202 ms QRS Dur : 168 ms QT Int : 448 ms P-R-T Axes : 019 -36 074 degrees QTc Int : 510 ms Sinus rhythm with frequent , and consecutive Premature ventricular complexes Left axis deviation Left bundle branch block Abnormal ECG No previous ECGs available Confirmed by Pal Jolly ([id number]) on 04/02/2023 3:35:39 PM Referred By: Confirmed By:Ap Jolly
[2023-04-02] MEDS ORDERED: OPTIRAY 320 500ml IV ONE (15:56)
--- NOTE | 2023-04-02 16:15 | CT Scan Report ---
CT angio chest PE protocol CT DOSE: 1915.66 mGy.cm HISTORY: 77 years-old Male with PE. Acute chest and abdominal pain TECHNIQUE: Multiple CTA images of the chest were obtained after the intravenous administration of 120 ml Optiray. Coronal and sagittal MIPS were obtained from the axial data set and were submitted for review. All measurements were obtained according to NASCET criteria. A dose lowering technique was u tilized adhering to the principles of ALARA. COMPARISON: CT abdomen and pelvis of same day, CTA 02/17/2023 (images only). FINDINGS: CTA: Heart is normal in size without pericardial effusion. Moderate to extensive coronary artery calcifica tions. Descending aortic endograft. No thoracic aortic aneurysm or dissection. Right IJ Xfwssf-t-Clns catheter distal tip terminates within the right atrium. No pulmonary emboli identified. CT CHEST: No thyroid nodule. Mildly enlarged right hilar lymph nodes measure up to 12 mm. Subcarinal lymph node s measure up to 9 mm. Trace pleural effusions. No pneumothorax or overt pulmonary edema. Bronchial wa ll thickening with mild mucous plugging and subsegmental bibasilar atelectasis. Mild pulmonary emphys doron. 6 mm groundglass nodule of the left upper lobe on image 146 is unchanged. Mild biapical pleural- parenchymal scarring. 7 mm fissural nodule left mid lung on image 111 is suggestive of a benign lymph node. Lobular septal thickening. No acute process of the imaged upper abdomen. Unremarkable soft tissues. No acute fracture. IMPRESSION: 1. No pulmonary emboli identified. 2. Trace pleural effusions with mild bibasilar atelectasis. 3. Pulmonary emphysema with bronchitis and mild mucous plugging. 4. Intralobular septal thickening may represent a component of pulmonary edema. 5. Unchanged 6 mm irregular groundglass nodule of the lateral upper lobe with likely benign 7 mm fiss ural nodule within the left midlung. Please refer to below summary of Fleischner criteria recommendations for follow-up of incidental CT n odules (Stephani Barker, Guidelines for management of small pulmonary nodules detected on CT scans: A sta tement from the Fleischner Society, Radiology 237: [phone].) SOLID NODULES Solitary nodule size: <6 mm * Low risk patients: no follow-up needed * high risk patients: optional CT at 12 months Solitary nodule size: 6-8 mm * Low risk patients: follow-up at 6-12 months, then consider further follow-up at 18-24 months * high risk patients: initial follow-up CT at 6-12 months and then at 18-24 months if no change Solitary nodule size: >8 mm * either low or high risk patients - consider follow-up CT at 3 months, and/or CT-PET, and/or biopsy Multiple nodules size: <6 mm * Low risk patients: no routine follow-up * high risk patients: optional CT at 12 months Multiple nodules size: 6-8 mm * Low risk patients: follow-up at 3-6 months, then consider further follow-up at 18-24 months * high risk patients: follow-up at 3-6 months, then at 18-24 months if no change Multiple nodules size: >8 mm * Low risk patients: follow-up at 3-6 months, then consider further follow-up at 18-24 months * high risk patients: follow-up at 3-6 months, then at 18-24 months if no change Note: newly detected indeterminate nodule in persons 35 years of age or older. * Low risk patients: minimal or absent history of smoking and/or other known risk factors * high risk patients: history of smoking or of other known risk factors (e.g. first degree relative with lung cancer, or exposure to asbestos, radon, uranium) * if a nodule up to 8 mm is partly solid or is ground glass further follow-up is required after 24 m onths to exclude possible slow growing adenocarcinoma (SALVATORE) SUBSOLID NODULES Solitary pure ground-glass nodule * nodule size <6 mm - no CT follow-up required * nodule size >=6 mm - follow-up CT at 6-12 months, then every 2 years until 5 years Solitary part-solid nodule * nodule size <6 mm - no CT follow-up required * nodule size >=6 mm - follow-up CT at 3-6 months. If unchanged, and solid component remains <6 mm, then annual follow-up for 5 years Multiple subsolid nodules * nodule size <6 mm - follow-up CT at 3-6 months, consider further follow-up at 2 and 4 years if sta ble * nodule size >=6 mm - follow-up CT at 3-6 months, subsequent management based on the most suspiciou s nodule(s) The above report was generated using voice recognition software. It may contain grammatical, syntax o r spelling errors. ACT 112: Negative or not required by law. The above report was generated using voice recognition software. It may contain grammatical, syntax o r spelling errors. Electronically signed by: Sven Reyes M.D. 04/02/2023 4:14 PM
--- NOTE | 2023-04-02 16:29 | CT Scan Report ---
CT OF THE ABDOMEN AND PELVIS WITH CONTRAST CLINICAL HISTORY: Abdominal pain. Rectal adenocarcinoma. COMPARISON STUDY: CT of the chest, abdomen and pelvis February 17, 2023. TECHNIQUE: Following IV administration of 120 mL of Optiray, axial images of the abdomen and pelvis w ere obtained from the lung bases to the proximal femurs. Images were reviewed in the axial, sagittal, and coronal planes. IV contrast was administered without complication. Automated exposure control w as utilized for the study. A dose lowering technique was utilized adhering to the principles of ALAHolly Watts. FINDINGS: Please note that the chest CT will be reported separately. No pneumatosis, free air or port al venous gas is present. There are a few indeterminate small hypodense hepatic lesions which measure up to 1.1 cm. There is no biliary or pancreatic ductal dilatation. Spleen, adrenal glands and pancre as are unremarkable. A few suspected renal cysts are present. There is no hydronephrosis. No abdomina l or pelvic lymphadenopathy is present. The caliber and wall thickness of small and large bowel are n ormal. There is no evidence for a bowel obstruction. The appendix is not visualized. Note is made of a large multiloculated cystic mass along the left aspect of the rectum and anus. The largest componen t measures 11.1 x 8.1 x 9.3 cm. The wall is mildly thickened and contains several calcifications. Com plex perianal component is present. The appearance is similar to CT of February 17, 2023. There is mild b ladder wall thickening with adjacent stranding. Prostate is enlarged, measuring 6.2 cm in transverse dimension. No suspicious osseous lesions are present. IMPRESSION: 1. Bladder wall thickening with adjacent stranding. This could be correlated with urinalysis to exclu de cystitis. Enlarged prostate. 2. No bowel obstruction. 3. No change in a multiloculated cystic mass along the left aspect of the rectum and anus with comple x perianal component, since CT of February 17, 2023. This likely reflects the known primary tumor. 4. A few small indeterminate hypodense hepatic lesions. ACT 112: Negative or not required by law. Electronically signed by: Nam Mckeon M.D. 04/02/2023 4:27 PM
[2023-04-02] MEDS ORDERED: ONDANSETRON INJ 2 MG/ML 2 ML VIAL ONE (17:29)
[2023-04-02] MEDS ORDERED: ONDANSETRON INJ 2 MG/ML 2 ML VIAL IV PRN (19:13)
[2023-04-02] MEDS ORDERED: ACETAMINOPHEN 325 MG TAB PO PRN (19:13)
[2023-04-02] MEDS ORDERED: ALBUTEROL 0.083% NEBU SOLN 3 ML VIAL NEB PRN (19:13)
[2023-04-02] MEDS ORDERED: POLYETHYLENE (MIRALAX) 17 GM PACK PO PRN (19:13)
[2023-04-02] MEDS ORDERED: PHENAZOPYRIDINE HCL 100 MG TAB PO PRN (19:28)
[2023-04-02] MEDS: TAMSULOSIN HCL 0.4 MG CAP PO SCH (21:28)
[2023-04-02] MEDS: cefTRIAXone SODIUM 2,000 MG in DEXTROSE 5% 50 ML IV SCH (21:28)
[2023-04-02] MEDS: LATANOPROST 0.005% OP SOLN 2.5 ML BTL OP SCH (21:29)
[2023-04-02] MEDS: DOXYCYCLINE HYCLATE 100 MG in DEXTROSE 5% 100 ML IV SCH (23:07)
[2023-04-03 03:56] LABS: Basophils # (auto) 0.01 K/uL (0-0.2); Basophils % (auto) 0.3 %; Eosinophils # (auto) 0.01 K/uL (0-0.50); Eosinophils % (auto) 0.3 %; Hematocrit (blood only) 29.5 % (42.0-52.0); Hemoglobin 10.4 g/dl (14.0-18.0); Immature Granulocytes # (auto) 0.09 K/uL (0.01-0.20); Immature Granulocytes % (auto) 2.6 %; Lymphocytes # (auto) 0.19 K/uL (1.2-3.4); Lymphocytes % (auto) 5.5 %; Mean Corpuscular Hemoglobin 32.1 pg (25.0-34.0); Mean Corpuscular Hgb Conc 35.3 g/dL (32.0-36.0); Mean Platelet Volume 10.1 fL (9.4-12.4); Monocytes # (auto) 0.51 K/uL (0.11-0.59); Monocytes % (auto) 14.8 %; Neutrophils # (auto) 2.64 K/uL (1.40-6.50); Neutrophils % (auto) 76.5 %; Platelet Count 36 K/uL (130-400); RDW Coefficient of Variation 16.7 % (11.5-14.5); RDW Standard Deviation 54.7 fL (36.4-46.3); Red Blood Count 3.24 M/uL (4.70-6.10); White Blood Count 3.45 K/ul (4.8-10.8)
[2023-04-03 04:07] LABS: BUN Creatinine Ratio 21.3 (10-20); Calcium 7.9 mg/dl (8.6-10.3); Creatinine Clr Calc Pharmacy 93.9 ml/min; Est GFR (African American) 101.8 ml/min; Est GFR (Non-African American) 87.9 ml/min; Potassium 3.4 mmol/L (3.5-5.1)
[2023-04-03] MEDS: DOXYCYCLINE HYCLATE 100 MG in DEXTROSE 5% 100 ML IV SCH ×2 (07:40→20:20)
[2023-04-03] MEDS: ASPIRIN 81 MG ECTAB PO SCH (08:14)
[2023-04-03] MEDS: ATORVASTATIN 20 MG TAB PO SCH (08:14)
[2023-04-03] MEDS: PANTOprazole 40 MG TAB PO SCH (08:14)
[2023-04-03] MEDS: predniSONE 5 MG TAB PO SCH (08:14)
[2023-04-03] MEDS: FLUTICASONE FUROATE 100MCG 14 PUFFS/INHALER INH SCH (09:22)
[2023-04-03] MEDS: SODIUM CHLORIDE 0.9% 1000ML 1,000 ML IV SCH (09:56)
--- NOTE | 2023-04-03 12:57 | Cardiology Consultation ---
Date of Consultation April 03, 2023 Assessment & Plan (1) Anaplasmosis: (2) Malignant neoplasm of rectum: (3) Elevated troponin: -Echocardiogram performed today 04/03/2023 and interpreted independently: Revealing moderate concentric left ventricular hypertrophy, abnormal septal motion consistent with underlying left bundle branch block, LVEF normal 55%, patient's status post transcatheter aortic valve implantation. Prosthetic valve gradients normal for this prosthesis, mild perivalvular regurgitation observed. Grade 1 diastolic dysfunction. Compared to the report of the prior outpatient study dated 01/21/2023, findings are relatively stable without interval change. -EKG performed 04/02/2023 and interpreted independently revealed sinus rhythm at 70 bpm with left bundle branch block, first-degree AV block, occasional PVCs. Evaluation for ischemia somewhat limited due to the presence of the underlying left bundle branch block which has been present since his TAVR procedure. -HS troponin likely elevated due to acute non cardiac illness , in the setting of moderate left ventricular hypertrophy , normal functioning TAVR prosthesis, and nonobstructive CAD. -Agree with IV Rocephin and doxycycline .Continue outpatient aspirin and atorvastatin. History of Present Illness Attending Physician: Juanito García MD History of Present Illness Pillo Wright is a 77-year-old male seen in cardiology consultation per the request of Dr. García for evaluation of elevated troponin. Patient presented via the emergency department on 04/02/2023 with complaint of fever at home as high as 103 F on the day of presentation. He describes most significant subjective symptom was nausea and that the vomited one time. In the ED transient shortness of breath was noted which has since resolved. He denies chest pain. About a week ago he had been found to have 2 ticks on his abdomen and one tick on his leg in the popliteal fossa of the right leg. He has been found to have pancytopenia with WBC count of 3.45, hemoglobin 10.4, and platelet count of 50 on presentation yesterday and down to 36k today. Anaplasma smear suggestive of anaplasmosis, confirmatory PCR test in process. Patient is now on IV doxycycline and IV Rocephin. He has been afebrile since arriving to the hospital x3 temperature measurements. Telemetry reveals SR in the 60s with LBBB and occasional PVCs. History: Treatment for rectal adenocarcinoma with 9.9 cm mass abutting the rectum initially noted at time of pre-TAVR CT scan in September,. 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 Pre-TAVR coronary angiography performed 09/16/2022 revealing moderate nonobstructive coronary heart disease with a long 40 to 50% narrowing of the mid LAD and 40% proximal circumflex 50% mid circumflex stenosis, 30% OM1 stenosis Allergies Allergy/AdvReac Type Severity Reaction Status Date / Time adhesive tape AdvReac Rash Verified 04/02/23 13:41 celery AdvReac Rash Verified 04/02/23 13:41 triethanolamine AdvReac Difficulty Verified 04/02/23 13:41 Breathing Black Tea Allergy Intermediate Difficulty Uncoded 04/02/23 13:41 Breathing Home Medications Medication Instructions Recorded Confirmed Type albuterol sulfate 90 mcg/actuation 2 puff inhalation QID PRN 09/16/22 04/02/23 History aerosol inhaler (ProAir HFA) Shortness Of Breath atorvastatin 20 mg tablet 20 mg PO DAILY 09/16/22 04/02/23 History fluticasone propionate 110 2 puff inhalation BID 09/16/22 04/02/23 History mcg/actuation HFA aerosol inhaler glucosamine sulf dipot 1 cap PO DAILY ##0 09/16/22 04/02/23 History chlr,msm,chond 550 mg-C 30 mg-deshawn 1 mg capsule (Glucosamine Chondroitin) mesalamine 1.2 gram tablet,delayed 3.6 g PO DAILY 09/16/22 04/02/23 History release prednisone 5 mg tablet 5 mg PO DAILY 09/16/22 04/02/23 History turmeric root extract 500 mg tablet 500 mg PO DAILY 09/16/22 04/02/23 History L.acidophil-L.casei-B.bifid-B.longum-FOS 1 cap PO .3 days/week 02/16/23 04/02/23 History 2 billion cell-50 mg capsule (Probiotic Blend) acetaminophen 325 mg capsule 650 mg PO QID PRN Pain 02/16/23 04/02/23 History (Tylenol) aspirin 81 mg capsule 81 mg PO DAILY 02/16/23 04/02/23 History borage seed oil 1,000 mg capsule 1,000 mg PO .Twice/week 02/16/23 04/02/23 History clotrimazole 1 % topical cream 1 applic topical BID PRN flare 02/16/23 04/02/23 History (Antifungal (clotrimazole)) ergocalciferol (vitamin D2) 1,000 1,000 unit PO .3 times/week 02/16/23 04/02/23 History unit capsule gabapentin 300 mg tablet 300 mg PO DAILY Pain 02/16/23 04/02/23 History indomethacin 25 mg capsule 25 mg PO DAILY 02/16/23 04/02/23 History latanoprost 0.005 % eye drops 1 drp ophthalmic (eye) HS 02/16/23 04/02/23 History metronidazole 0.75 % topical cream 1 applic topical DAILY 02/16/23 04/02/23 History multivitamin 1 tab PO .3 days/week 02/16/23 04/02/23 History omeprazole 20 mg capsule,delayed 20 mg PO DAILY PRN Heartburn 02/16/23 04/02/23 History release vitamin B12 500 mcg-folic acid 400 1 tab PO .once/week 02/16/23 04/02/23 History mcg tablet ondansetron HCl 8 mg tablet 8 mg PO Q8H PRN Nausea 03/08/23 04/02/23 History prochlorperazine maleate 10 mg 10 mg PO Q6H PRN Nausea 03/08/23 04/02/23 History tablet (Compazine) phenazopyridine 95 mg tablet (Azo 95 mg PO TID PRN Pain 03/29/23 04/02/23 History Urinary Pain Relief) tamsulosin 0.4 mg capsule 0.4 mg PO .COMPLEX #30 caps 03/29/23 04/02/23 Rx Patient History Medical History Aortic calcification Aortic stenosis Asthma Basal cell carcinoma (BCC) of right eyelid Bicuspid aortic valve Colonic polyp Coronary artery calcification Degeneration of cervical intervertebral disc Gastroesophageal reflux disease Glaucoma H/O echocardiogram Hemorrhoids Hepatic steatosis Herpes simplex viral infection Internal carotid artery stenosis Iron deficiency anemia Lateral epicondylitis of elbow Malignant neoplasm of rectum Anorectal exam under anesthesia with biopsy of rectal mass on 01/01/23 Neuropathy Osteoarthritis Pneumonia Prostatitis Rectal mass Rosacea Sepsis Spinal stenosis, cervical region Ulcerative colitis Surgical History H/O aortic valve replacement 12/08/22 History of arthroplasty of left knee History of cataract surgery Bilateral History of ear surgery Create eardrum opening right ear 2014 History of surgery Anal fistula surgery 07/22/2018 History of surgery anorectal exams under anesthesia History of surgery Placement of anal seton on 03/25/18 Hx of colonoscopy Hx of hemorrhoidectomy With banding 1997 S/P tonsillectomy Family History Mother , in her 70s Cancer Pt uncertain of type of cancer; Father , 85yo Sepsis Brother Brain cancer Polio Brother Diabetes Sister Qzpvnbq-Bonhu-Ewfue disease Family/Other Colorectal cancer Niece Son No problems noted. Son No problems noted. 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 [place]; How many Children do You have: 3 Feels Safe at Home: Yes Safety Concerns: Feels Safe At This Time Diet: regular caffeine: Yes (6-8 cups/day) during the past year weight has: remained stable Assistive Devices: Denture - Upper, Denture - Lower and Glasses Review of Systems Review of Systems: All systems reviewed & are unremarkable except as noted in HPI & below Results & Data Vital Signs (Past 12 Hours) Vital Signs Temp Pulse Pulse Resp BP BP Pulse Ox 04/03/23 11:30 36.6 C 62 22 125/69 95 04/03/23 05:30 81 13 95 04/03/23 05:00 64 21 04/03/23 05:00 103/61 04/03/23 04:30 66 13 04/03/23 04:00 70 21 94 04/03/23 04:00 108/60 04/03/23 03:30 66 16 91 04/03/23 03:00 66 23 95 04/03/23 03:00 108/59 L 04/03/23 01:40 63 O2 Del Method 04/03/23 11:30 Room Air 04/03/23 05:30 04/03/23 05:00 04/03/23 05:00 04/03/23 04:30 04/03/23 04:00 04/03/23 04:00 04/03/23 03:30 04/03/23 03:00 Room Air 04/03/23 03:00 04/03/23 01:40 Laboratory Results Cardiac Enzymes 04/02/23 04/02/23 04/03/23 Range/Units 15:13 22:34 03:34 Troponin I High Sens 63.9 H* D 327.2 H* D 322.5 H* (0-20) pg/ml CBC 04/03/23 Range/Units 03:34 WBC 3.45 L (4.8-10.8) K/ul RBC 3.24 L (4.70-6.10) M/uL Hgb 10.4 L (14.0-18.0) g/dl Hct 29.5 L (42.0-52.0) % Plt Count 36 L (130-400) K/uL Neut # (Auto) 2.64 (1.40-6.50) K/uL Lymph # (Auto) 0.19 L (1.2-3.4) K/uL Esmeralda # (Auto) 0.51 (0.11-0.59) K/uL Eos # (Auto) 0.01 (0-0.50) K/uL Baso # (Auto) 0.01 (0-0.2) K/uL Comprehensive Metabolic Panel 04/03/23 Range/Units 03:34 Sodium 133 L (136-145) mmol/L Potassium 3.4 L (3.5-5.1) mmol/L Chloride 105 (98-107) mmol/L Carbon Dioxide 23 (21-32) mmol/L BUN 16 (6-23) mg/dl Creatinine 0.75 (0.6-1.4) mg/dl Glucose 104 H (70-99(Fasting)) mg/dl Calcium 7.9 L (8.6-10.3) mg/dl Intake and Output 04/02/23 04/03/23 04/03/23 22:59 06:59 14:59 Intake Total 70 / 2290 110 / 2290 1107.333 / 1107.333 Output Total 0 / 0 Balance 70 / 2290 110 / 2290 1107.333 / 1107.333 Intake: IV 70 / 2240 110 / 2240 1107.333 / 1107.333 Doxycycline Hyclate 100 mg In 110 / 110 110 / 110 Dextrose 5% 100 ml @ 50 mls/hr IV Q12H GURU Rx#:[id number] Sodium Chloride 0.9% 1000ML 1, 997.333 / 997.333 000 ml @ 80 mls/hr IV .[id number] GURU Rx#:[id number] cefTRIAXone SODIUM 2,000 mg In 70 / 70 Dextrose 5% 50 ml @ 100 mls/hr IV Q24H GURU Rx#:[id number] Oral 0 / 50 Output: Urine 0 / 0 Other: # Unmeasured Voids 1 Weight 98.4 kg 99.2 kg Weight Measurement Method Standing Scale Patient Weight 04/04/23 06:59 Weight 99.2 kg
--- NOTE | 2023-04-03 15:20 | Hospitalist Progress Note ---
Date of Service April 03, 2023 Assessment & Plan (1) Fever: (2) Anaplasmosis: Plan: per admitting service notes with addendum: Thrombocytopenia Patient is 77-year-old male with PMH rectal adenocarcinoma, bladder tumor, asthma, ulcerative colitis, iron deficiency anemia, presented to ER with complaint of fever x 1 day up to 103F. Tick bite 1 week ago In ER vitals stable. WBC: 4.3, PLT: 50. 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 04/03 CT chest: 1. No pulmonary emboli identified. 2. Trace pleural effusions with mild bibasilar atelectasis. 3. Pulmonary emphysema with bronchitis and mild mucous plugging. 4. Intralobular septal thickening may represent a component of pulmonary edema. 5. Unchanged 6 mm irregular groundglass nodule of the lateral upper lobe with likely benign 7 mm fissural nodule within the left midlung. Please refer to below summary of Fleischner criteria recommendations for follow- up of incidental CT nodules (Stephani Barker, Guidelines for management of small pulmonary nodules detected on CT scans: A statement from the Fleischner Society, Radiology 237: [phone] abd/pelvis: 1. Bladder wall thickening with adjacent stranding. This could be correlated with urinalysis to exclude cystitis. Enlarged prostate. 2. No bowel obstruction. 3. No change in a multiloculated cystic mass along the left aspect of the rectum and anus with complex perianal component, since CT of February 17, 2023. This likely reflects the known primary tumor. 4. A few small indeterminate hypodense hepatic lesions. continue IV Ceftri + Doxycycline (3) Elevated troponin: Plan: Initial high-sensitivity troponin: 24.6. EKG: Sinus rhythm rate 78, PVCs, LBBB. Patient with history of chronic LBBB per outpatient prior EKGs Possible demand ischemia Trend troponin Echo 04/03 Trop increased to 300s x 2 no cardiac symptoms echo: pending [employer] Manager consulted (4) Colon cancer: Plan: Currently receiving chemo Following with oncology, Dr. Rand (5) Asthma: Plan: On chronic prednisone, continue prednisone Continue home medicines Albuterol as needed (6) Ulcerative colitis: Plan: Continue mesalamine (7) Iron deficiency anemia: Plan: Last received IV iron 03/19/2023 Hgb: 11. Baseline~12 Monitor H&H DVT Prophylaxis SCDs DNR/DNI as per discussion with pt and pt's signficant other Follows with Dr Valdez for routine care Disposition d/c home when medically stable plan of care discussed with patient in detail and at length all questions answered he is understanding, agreeable, comfortable with the plan of care Admission and Anticipated Discharge Date Admission Date: April 02, 2023 Subjective ff up for anaplasmosis, etc seen resting in chair, comfortable states he feels improved compared to yesterday denies fever/chills, headache, dizziness, chest pain, palpitations, dizziness nausea resolved no abdominal pain no other symptoms Review of Systems Review of Systems: all noted and negative except for above Physical Exam Physical Exam: General- oriented x 3, not in distress, speaks in sentences with no effort or accessory muscle use Head- atraumatic Eyes- PERRL, EOMI, anicteric ENT- oropharynx clear Neck- supple, no JVD, no adenopathy, no thyromegaly; carotids +2/2, no bruits appreciated Lungs- clear to auscultation bilaterally, no rales/wheezes Heart- normal rate, regular rhythm; no murmur, no gallop, no rub appreciated Abdomen- normal bowel sounds, nondistended, soft, nontender, no masses or hepatosplenomegaly Extremities- no pretibial edema, no calf tenderness; peripheral pulses intact Neuro- alert, oriented x 3; CN 2-12 grossly intact; motor 5/5 bilaterally;sensation 100% on all extremities; no other gross focal neurologic deficits Skin- warm & dry Results & Data Results & Data Vital Signs (Past 12 Hours) Vital Signs Temp Pulse Pulse Pulse Resp BP BP 04/03/23 11:11 36.7 C 62 18 125/69 04/03/23 11:30 36.6 C 62 22 125/69 04/03/23 05:30 81 13 04/03/23 05:00 64 21 04/03/23 05:00 103/61 05/20/23 04:30 66 13 04/03/23 04:00 70 21 04/03/23 04:00 108/60 04/03/23 03:30 66 16 Pulse Ox O2 Del Method 04/03/23 11:11 94 Room Air 04/03/23 11:30 95 Room Air 04/03/23 05:30 95 04/03/23 05:00 04/03/23 05:00 04/03/23 04:30 04/03/23 04:00 94 04/03/23 04:00 04/03/23 03:30 91 all noted and reviewed including below (1) Fever Fever type: due to other condition Qualified Code(s): R50.81 - Fever presenting with conditions classified elsewhere (4) Colon cancer Colon location: unspecified part of colon Qualified Code(s): C18.9 - Malignant neoplasm of colon, unspecified
[2023-04-03] MEDS: TAMSULOSIN HCL 0.4 MG CAP PO SCH (17:33)
[2023-04-03] MEDS: cefTRIAXone SODIUM 2,000 MG in DEXTROSE 5% 50 ML IV SCH (20:20)
[2023-04-03] MEDS: LATANOPROST 0.005% OP SOLN 2.5 ML BTL OP SCH (20:24)
[2023-04-03] MEDS: MESALAMINE 1.2 GM SCH (20:25)
[2023-04-04] MEDS: MESALAMINE 1.2 GM SCH (08:59)
[2023-04-04] MEDS: DOXYCYCLINE HYCLATE 100 MG in DEXTROSE 5% 100 ML IV SCH (08:59)
[2023-04-04] MEDS: predniSONE 5 MG TAB PO SCH (09:00)
[2023-04-04] MEDS: ATORVASTATIN 20 MG TAB PO SCH (09:00)
[2023-04-04] MEDS: FLUTICASONE FUROATE 100MCG 14 PUFFS/INHALER INH SCH (09:00)
[2023-04-04] MEDS: PANTOprazole 40 MG TAB PO SCH (09:00)
[2023-04-04] MEDS: ASPIRIN 81 MG ECTAB PO SCH (09:00)
[2023-04-04 09:30] LABS: Basophils # (auto) 0.02 K/uL (0-0.2); Basophils % (auto) 0.6 %; Eosinophils # (auto) 0.08 K/uL (0-0.50); Eosinophils % (auto) 2.3 %; Hematocrit (blood only) 31.1 % (42.0-52.0); Hemoglobin 10.7 g/dl (14.0-18.0); Immature Granulocytes % (auto) 2.9 %; Lymphocytes # (auto) 0.24 K/uL (1.2-3.4); Mean Corpuscular Hemoglobin 31.2 pg (25.0-34.0); Mean Corpuscular Hgb Conc 34.4 g/dL (32.0-36.0); Mean Corpuscular Volume 90.7 fL (80.0-100.0); Mean Platelet Volume 10.6 fL (9.4-12.4); Monocytes # (auto) 0.54 K/uL (0.11-0.59); Monocytes % (auto) 15.7 %; Neutrophils # (auto) 2.46 K/uL (1.40-6.50); Neutrophils % (auto) 71.5 %; Platelet Count 49 K/uL (130-400); RDW Coefficient of Variation 16.5 % (11.5-14.5); RDW Standard Deviation 52.3 fL (36.4-46.3); Red Blood Count 3.43 M/uL (4.70-6.10); White Blood Count 3.44 K/ul (4.8-10.8)
[2023-04-04 09:49] LABS: BUN Creatinine Ratio 17.1 (10-20); Calcium 8.2 mg/dl (8.6-10.3); Est GFR (African American) 104.8 ml/min; Est GFR (Non-African American) 90.4 ml/min; Potassium 3.6 mmol/L (3.5-5.1)
[2023-04-04] MEDS ORDERED: HEPARIN 100 UNIT/ML 5ML FLUSH FLUSH STA (14:26)
--- NOTE | 2023-04-04 19:13 | Hospitalist Progress Note ---
Date of Service April 04, 2023 .delayed entry date of service noted above Assessment & Plan (1) Fever: (2) Anaplasmosis: Plan: per admitting service notes with addendum: Thrombocytopenia Patient is 77-year-old male with PMH rectal adenocarcinoma, bladder tumor, as thma, ulcerative colitis, iron deficiency anemia, presented to ER with complaint of fever x 1 day up to 103F. Tick bite 1 week ago In ER vitals stable. WBC: 4.3, PLT: 50. PLT 100 on 03/26/2023 and 142 on 03/19/2023 Lyme negative, UA: Not consistent with UTI Anaplasmosis smear: a single PMN leukocyte with a cytoplasmic inclusion suspicious for anaplasmosis Anaplasmosis DNA: Pending Blood cultures negative 04/03 CT chest: 1. No pulmonary emboli identified. 2. Trace pleural effusions with mild bibasilar atelectasis. 3. Pulmonary emphysema with bronchitis and mild mucous plugging. 4. Intralobular septal thickening may represent a component of pulmonary edema. 5. Unchanged 6 mm irregular groundglass nodule of the lateral upper lobe with likely benign 7 mm fissural nodule within the left midlung. Please refer to below summary of Fleischner criteria recommendations for follow- up of incidental CT nodules (Stephani Barker, Guidelines for management of small pulmonary nodules detected on CT scans: A statement from the Fleischner Society, Radiology 237: [phone].) [address] abd/pelvis: 1. Bladder wall thickening with adjacent stranding. This could be correlated with urinalysis to exclude cystitis. Enlarged prostate. 2. No bowel obstruction. 3. No change in a multiloculated cystic mass along the left aspect of the rectum and anus with complex perianal component, since CT of February 17, 2023. This likely reflects the known primary tumor. 4. A few small indeterminate hypodense hepatic lesions. Provided with IV Ceftri + Doxycycline x2 days Discharge on doxycycline 100 mg twice daily x8 more days to complete 10-day course Follow-up lung nodule seen on CT chest (3) Elevated troponin: Plan: Initial high-sensitivity troponin: 24.6. EKG: Sinus rhythm rate 78, PVCs, LBBB. 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 (4) Colon cancer: Plan: Currently receiving chemo Following with oncology, Dr. Rand (5) Asthma: Plan: On chronic prednisone, continue prednisone Continue home medicines Albuterol as needed (6) Ulcerative colitis: Plan: Continue mesalamine (7) Iron deficiency anemia: Plan: Last received IV iron 03/19/2023 Hgb: 11. Baseline~12 Monitor H&H DVT Prophylaxis SCDs DNR/DNI as per discussion with pt and pt's signficant other Follows with Dr Valdez for routine care Disposition d/c home plan of care discussed with patient in detail and at length all questions answered he is understanding, agreeable, comfortable with the plan of care Admission and Anticipated Discharge Date Admission Date: April 02, 2023 Subjective Follow-up for anaplasmosis, etc. Resting in chair, comfortable, in good spirits States he feels much better overall Denies fevers or chills, headache, nausea, weakness, abdominal pain No any other symptoms States he is ready and would like to be discharged Review of Systems Review of Systems: all noted and negative except for above Physical Exam Physical Exam: General- oriented x 3, not in distress, speaks in sentences with no effort or accessory muscle use Eyes- anicteric Neck- no JVD Lungs- clear breath sounds bilaterally, no rales/wheezes Heart- normal rate, regular rhythm; no murmurs Abdomen- normal bowel sounds, nondistended, soft, nontender Extremities- no pretibial edema, no calf tenderness Neuro- alert, oriented x 3; no gross focal neurologic deficits Skin- warm & dry Results & Data Results & Data Vital Signs (Past 12 Hours) Vital Signs Temp Pulse Pulse Resp BP Pulse Ox O2 Del Method 04/04/23 14:28 36.8 C 62 68 16 128/70 96 04/04/23 11:48 36.8 C 68 16 128/70 96 Room Air 04/04/23 10:36 Room Air 04/04/23 08:13 36.9 C 71 16 154/82 H 97 Room Air all noted and reviewed including below (1) Fever Fever type: due to other condition Qualified Code(s): R50.81 - Fever presenting with conditions classified elsewhere (4) Colon cancer Colon location: unspecified part of colon Qualified Code(s): C18.9 - Malignant neoplasm of colon, unspecified
[2023-04-05 14:53] LABS: Anaplasmosis Smear(Rpt to DOH) Pos for Anaplasma
--- NOTE | 2023-04-05 16:57 | Discharge Summary ---
Discharge Summary Date of Service April 05, 2023 Notes For Next Care Provider Medication Changes From Visit Doxycycline 100 mg p.o. twice daily x8 days Admission HPI Per Admitting Provider Patient is 77-year-old male with PMH rectal adenocarcinoma, bladder tumor, asthma, ulcerative colitis, iron deficiency anemia, presented to ER with complaint of fever. History obtained from patient, patient's and chart review. States had fever 101.5F last night, took Tylenol and went to bed. This morning had Fever 103F. Currently on chemotherapy. Nauseated and vomited today after drinking Coke in ER. Patient states thinks abdomen is more distended and has diffuse abdominal aching. Reports 1 week ago had 2 ticks to abdomen and one tick to right popliteal fossa. removed with tweezers. states ticks on abdomen were engorged. Patient complains of generalized headache and fatigue and generalized weakness for the past day as well. Patient states has chronic dysuria and uses OTC Azo. Last received IV iron 02/23/2023, 03/19/2023. Denies diarrhea, constipation, dizziness, syncope, vision changes, neck pain, CP, SOB, palpitations, cough, sore throat, otalgia, rhinorrhea, extremity edema, rashes, hematuria, urinary frequency. Admission Exam Per Admitting Provider General- oriented x 3, not in distress, speaks in sentences with no effort or accessory muscle use Eyes- anicteric Neck- no JVD Lungs- clear breath sounds bilaterally, no rales/wheezes Heart- normal rate, regular rhythm; no murmurs Abdomen- normal bowel sounds, nondistended, soft, nontender Extremities- no pretibial edema, no calf tenderness Neuro- alert, oriented x 3; no gross focal neurologic deficits Skin- warm & dry Principal Dx & Hospital Course #1 = Principal Diagnosis (1) Fever: (2) Anaplasmosis: per admitting service notes with addendum: Thrombocytopenia Patient is 77-year-old male with PMH rectal adenocarcinoma, bladder tumor, asthma, ulcerative colitis, iron deficiency anemia, presented to ER with complaint of fever x 1 day up to 103F. Tick bite 1 week ago In ER vitals stable. WBC: 4.3, PLT: 50. PLT 100 on 03/26/2023 and 142 on 03/19/2023 Lyme negative, UA: Not consistent with UTI Anaplasmosis smear: a single PMN leukocyte with a cytoplasmic inclusion suspicious for anaplasmosis Anaplasmosis DNA: Pending Blood cultures negative CT chest: 1. No pulmonary emboli identified. 2. Trace pleural effusions with mild bibasilar atelectasis. 3. Pulmonary emphysema with bronchitis and mild mucous plugging. 4. Intralobular septal thickening may represent a component of pulmonary edema. 5. Unchanged 6 mm irregular groundglass nodule of the lateral upper lobe with likely benign 7 mm fissural nodule within the left midlung. Please refer to below summary of Fleischner criteria recommendations for follow- up of incidental CT nodules (Stephani Barker, Guidelines for management of small pulmonary nodules detected on CT scans: A statement from the Fleischner Society, Radiology 237: [id number].) [address] abd/pelvis: 1. Bladder wall thickening with adjacent stranding. This could be correlated with urinalysis to exclude cystitis. Enlarged prostate. 2. No bowel obstruction. 3. No change in a multiloculated cystic mass along the left aspect of the rectum and anus with complex perianal component, since CT of February 17, 2023. This likely reflects the known primary tumor. 4. A few small indeterminate hypodense hepatic lesions. Provided with IV Ceftri + Doxycycline x2 days Discharge on doxycycline 100 mg twice daily x8 more days to complete 10-day course Follow-up lung nodule seen on CT chest (3) Elevated troponin: Initial high-sensitivity troponin: 24.6. EKG: Sinus rhythm rate 78, PVCs, LBBB. Patient with history of chronic LBBB per outpatient prior EKGs Possible demand ischemia Trend troponin Echo 04/04 Trop increased to 300s x 2 no cardiac symptoms echo: EF 55%, septal motion is abnormal consistent with underlying left bundle branch block Left ventricular systolic function is normal Grade 1 diastolic dysfunction [employer] consulted, HS troponin likely elevated due to acute non cardiac illness , in the setting of moderate left ventricular hypertrophy , normal functioning TAVR prosthesis, and nonobstructive CAD. (4) Colon cancer: Currently receiving chemo Following with oncology, Dr. Rand (5) Asthma: On chronic prednisone, continue prednisone Continue home medicines Albuterol as needed (6) Ulcerative colitis: Continue mesalamine (7) Iron deficiency anemia: Last received IV iron 03/19/2023 Hgb: 11. Baseline~12 Monitor H&H DVT Prophylaxis SCDs DNR/DNI as per discussion with pt and pt's signficant other Follows with Dr Valdez for routine care Disposition d/c home plan of care discussed with patient in detail and at length all questions answered he is understanding, agreeable, comfortable with the plan of care Updated Medication List Medication Instructions Recorded Confirmed Type albuterol sulfate 90 mcg/actuation 2 puff inhalation QID PRN 09/16/22 04/02/23 History aerosol inhaler (ProAir HFA) Shortness Of Breath atorvastatin 20 mg tablet 20 mg PO DAILY 09/16/22 04/02/23 History fluticasone propionate 110 2 puff inhalation BID 09/16/22 04/02/23 History mcg/actuation HFA aerosol inhaler glucosamine sulf dipot 1 cap PO DAILY ##0 09/16/22 04/02/23 History chlr,msm,chond 550 mg-C 30 mg-deshawn 1 mg capsule (Glucosamine Chondroitin) mesalamine 1.2 gram tablet,delayed 3.6 g PO DAILY 09/16/22 04/02/23 History release prednisone 5 mg tablet 5 mg PO DAILY 09/16/22 04/02/23 History turmeric root extract 500 mg tablet 500 mg PO DAILY 09/16/22 04/02/23 History L.acidophil-L.casei-B.bifid-B.longum-FOS 1 cap PO .3 days/week 02/16/23 04/02/23 History 2 billion cell-50 mg capsule (Probiotic Blend) acetaminophen 325 mg capsule 650 mg PO QID PRN Pain 02/16/23 04/02/23 History (Tylenol) aspirin 81 mg capsule 81 mg PO DAILY 02/16/23 04/02/23 History borage seed oil 1,000 mg capsule 1,000 mg PO .Twice/week 02/16/23 04/02/23 History clotrimazole 1 % topical cream 1 applic topical BID PRN flare 02/16/23 04/02/23 History (Antifungal (clotrimazole)) ergocalciferol (vitamin D2) 1,000 1,000 unit PO .3 times/week 02/16/23 04/02/23 History unit capsule gabapentin 300 mg tablet 300 mg PO DAILY Pain 02/16/23 04/02/23 History indomethacin 25 mg capsule 25 mg PO DAILY 02/16/23 04/02/23 History latanoprost 0.005 % eye drops 1 drp ophthalmic (eye) HS 02/16/23 04/02/23 History metronidazole 0.75 % topical cream 1 applic topical DAILY 02/16/23 04/02/23 History multivitamin 1 tab PO .3 days/week 02/16/23 04/02/23 History omeprazole 20 mg capsule,delayed 20 mg PO DAILY PRN Heartburn 02/16/23 04/02/23 History release vitamin B12 500 mcg-folic acid 400 1 tab PO .once/week 02/16/23 04/02/23 History mcg tablet ondansetron HCl 8 mg tablet 8 mg PO Q8H PRN Nausea 03/08/23 04/02/23 History prochlorperazine maleate 10 mg 10 mg PO Q6H PRN Nausea 03/08/23 04/02/23 History tablet (Compazine) phenazopyridine 95 mg tablet (Azo 95 mg PO TID PRN Pain 03/29/23 04/02/23 History Urinary Pain Relief) tamsulosin 0.4 mg capsule 0.4 mg PO .COMPLEX #30 caps 03/29/23 04/02/23 Rx doxycycline hyclate 100 mg tablet 100 mg PO BID 8 days #16 tabs 04/04/23 Rx Hospital Stay Data Consultations 04/02/23 14:24 ED Decision to Admit Stat 04/03/23 09:19 Consult Cardiology Routine Diagnostic Imagining Performed 04/02/23 15:48 CT for pulmonary embolism PE [CT angio chest PE protocol] Urgent 04/02/23 15:48 CT Abd and Pelvis [CT abd pelvis IV con only] Urgent Pending Results Patient Have Any Pending Studies at Discharge: Yes Discharge Instructions Given to Patient (Per Discharging Provider) PLEASE REFER TO YOUR NEW MEDICATION LIST AND FOLLOW INSTRUCTIONS CAREFULLY. YOUR NEW MEDICATIONS INCLUDE: DOXYCYCLINE- antibiotic for anaplasmosis PLEASE DRINK PLENTY OF FLUIDS. PLEASE CALL YOUR PRIMARY CARE PHYSICIAN OR RETURN TO THE ER IF WITH WORSENING OF SYMPTOMS, INCLUDING fever/chills, weakness, nausea, confusion, etc FOLLOW UP WITH PRIMARY CARE PHYSICIAN IN 1 WEEK.
[2023-04-07 22:28] LABS: Ehrlichia chaff IgG Ab <1:64 (<1:64); Ehrlichia chaff IgM Ab <1:20 (<1:20)
== END 2023-04-04 16:04 | disposition home or self-care (01) | DRG 868 ==
LOC: ED 10:17 → EDINP 15:10 → SUATTDRO 15:10 → 2W 19:13